=== PATIENT | male | born 1985 | race African-American/Black ===

== ENCOUNTER 2017-12-23 15:17 | Emergency (ER) | payer SELFPAY ==
[~2017-12-23] VITALS: Ht 182.9 cm; Wt 75.0 kg
[2017-12-23 21:04] VITALS: BP 120/65
== END 2017-12-23 21:05 | disposition home or self-care (01) ==
LOC: ER 15:17
DX: S80.862A Insect bite (nonvenomous), left lower leg, initial encounter (principal); L02.416 Cutaneous abscess of left lower limb; L03.116 Cellulitis of left lower limb; F12.10 Cannabis abuse, uncomplicated; W57.XXXA Bitten or stung by nonvenomous insect and other nonvenomous arthropods, initial encounter; Y93.89 Activity, other specified; Y92.89 Other specified places as the place of occurrence of the external cause; Y99.8 Other external cause status
CPT/HCPCS: 99283

== ENCOUNTER 2018-02-02 12:48 | Emergency (ER) | payer SELFPAY ==
[~2018-02-02] VITALS: Ht 182.9 cm; Wt 81.7 kg
[2018-02-02 12:56] VITALS: BP 111/63
== END 2018-02-02 18:07 | disposition left against medical advice (07) ==
LOC: ER 12:48
DX: S70.262A Insect bite (nonvenomous), left hip, initial encounter (principal); S00.86XA Insect bite (nonvenomous) of other part of head, initial encounter; F17.200 Nicotine dependence, unspecified, uncomplicated; Z53.21 Procedure and treatment not carried out due to patient leaving prior to being seen by health care provider; W57.XXXA Bitten or stung by nonvenomous insect and other nonvenomous arthropods, initial encounter; Y93.89 Activity, other specified; Y92.89 Other specified places as the place of occurrence of the external cause; Y99.8 Other external cause status

== ENCOUNTER 2024-08-01 23:45 | Emergency (ER) | payer BC, MEDICAID ==
[~2024-08-01] VITALS: Ht 182.9 cm; Wt 79.0 kg
[2024-08-02 00:05] VITALS: O2SAT 100
[2024-08-02 00:09] VITALS: TEMP 36.8; O2SAT 100
[2024-08-02] MEDS ORDERED: NAPR-1176 MT (00:43)
[2024-08-02] MEDS ORDERED: CYCL10TA21 MT (00:43)
[2024-08-02 01:24] VITALS: BP 109/79; PULSE 69; RESP 18
[2024-08-02] MEDS: KETOROLAC 30MG/ML VIAL IM ONE (01:24)
== END 2024-08-02 01:25 | disposition home or self-care (01) ==
LOC: ER 23:52
DX: M79.672 Pain in left foot (principal); M79.604 Pain in right leg; M54.50 Low back pain, unspecified; Z79.899 Other long term (current) drug therapy
CPT/HCPCS: 99283; 96372; J1885